=== PATIENT | female | born 2000 | race Caucasian/White ===

== ENCOUNTER 2021-10-25 15:12 | Outpatient (CLI) | payer OTHER ==
[2021-10-25 19:26] LABS: BILIRUBIN,URINE NEGATIVE (NEGATIVE); GLUCOSE, URINE (UA) NEGATIVE (NEGATIVE); KETONES,URINE (UA) NEGATIVE (NEGATIVE); LEUKOCYTE ESTERASE, URINE NEGATIVE (NEGATIVE); NITRITE,URINE POSITIVE (NEGATIVE); OCCULT BLOOD,URINE NEGATIVE (NEGATIVE); PROTEIN,URINE 30 mg/dL (NEGATIVE); UROBILINOGEN,URINE 0.2 (NORMAL) E.U./dL (NORMAL)
[2021-10-25 19:35] LABS: CLARITY,URINE CLEAR (CLEAR)
[2021-10-25 19:36] LABS: BACTERIA,URINE Few /HPF (None Seen); HCG UR QUAL NEGATIVE; MUCUS,URINE Few Strands; RBC,URINE None Seen /HPF (0-5); SQUAMOUS EPITHELIAL CELL,UR FEW Squamous (<= Few); WBC,URINE 0-3 /HPF (0-5)
== END 2021-10-25 23:59 | disposition home or self-care (01) ==
LOC: LAB.N 15:12
PROVIDERS: ATTEND Nurse Practitioner
DX: R39.9 Unspecified symptoms and signs involving the genitourinary system (principal); R30.0 Dysuria
CPT/HCPCS: 81001; 81025; 87086

== ENCOUNTER 2021-11-02 08:00 | Outpatient (CLI) | payer OTHER | END 2021-11-02 23:59 | disposition home or self-care (01) | LOC: LAB.N 08:00 | PROVIDERS: ATTEND Family Medicine | DX: R30.0 Dysuria (principal) | CPT/HCPCS: 87086 ==

== ENCOUNTER 2022-06-29 16:46 | Outpatient (CLI) | payer OTHER | END 2022-06-29 16:47 | disposition home or self-care (01) | LOC: LAB.N 16:46 | PROVIDERS: ATTEND Nurse Practitioner Obstetrics & Gynecology | DX: R30.0 Dysuria (principal) | CPT/HCPCS: 87086 ==

== ENCOUNTER 2022-07-02 16:16 | Outpatient (CLI) | payer OTHER | END 2022-07-02 16:17 | disposition home or self-care (01) | LOC: LAB.N 16:16 | PROVIDERS: ATTEND Nurse Practitioner Obstetrics & Gynecology | DX: R30.0 Dysuria (principal) | CPT/HCPCS: 87086 ==

== ENCOUNTER 2022-08-11 06:42 | Outpatient (CLI) | payer OTHER ==
--- NOTE | 2022-08-11 11:19 | Ultrasound Report ---
PROCEDURE: OB Detailed Eval INDICATIONS: SUPERVISION OF OUTSIDE/PRIOR DATING DATA: Last menstrual period (LMP): 03/20/2022. LMP-based estimated date of delivery (PACO): 12/25/2022. First dating scan (date and location): 05/19/2022. Estimated date of delivery (PACO) from first dating scan: 12/30/2022. The below data below was generated using the ultrasound PACO of 12/30/2022 TECHNIQUE: Real-time scanning was performed of the fetus, with image documentation and biometric measurements. COMPARISON: None. FINDINGS: General: A single living intrauterine gestation is present. Presentation: Cephalic Placenta: Placental position is posterior, without previa. Amniotic fluid index: 13.7 cm, normal for gestational age. Largest pocket 4 cm. heart rate: 150 beats per minute. Maternal cervical canal: 4.3 cm long; normal length is 2.5 cm or more. biometrics: Biparietal diameter: 5.3 cm, 22 weeks 1 day. 99th percentile Head circumference: 19.1 cm, 21 weeks 2 days. 94th percentile Abdominal circumference: 15.8 cm, 20 weeks 6 days. 78 percentile Femur length: 3.4 cm, 20 weeks 6 days. 76 percentile Estimated gestational age from initial scan: 19 weeks 6 days Composite gestational age from present scan: 21 weeks 2 days Estimated weight and percentile: 389 g, 95th percentile Measurement variability in biometric dating: +/- 10 days from 12-20 weeks gestation, +/- 2 weeks from 20-30 weeks gestation, +/- 3 weeks at 30 weeks gestation or later. Anatomic survey: Neuro: Ventricles are normal at less than 10 mm. Cisterna magna is normal at 3-11 mm. Cerebellum i s normal in size and morphology. Nuchal skin fold: Normal at less than 6 mm between 14 and 20 weeks gestational age. Face: Nose and lips, facial profile are normal. Spine: No evidence for spina bifida. Heart: 4-chambered heart is present, with normal ventricular outflow tracts. Diaphragm: Diaphragm is intact. Stomach: Left-sided stomach is present. Kidneys: No hydronephrosis. Normal is less than 5 mm in 2nd trimester, less than 7 mm in 3rd trimester. Cord: 3 vessel cord has orthotopic insertion. Bladder: Normal in size. Extremities: All 4 extremities are visualized. IMPRESSION: 1. [place]ett living intrauterine at 21 weeks 2 days based on today's ultrasound. This is co ncordant with the first trimester ultrasound. Fetus is in the 95th percentile for weight. BPD is at t he 99th percentile. Recommend clinical correlation and if indicated follow-up OB ultrasound to evalua te for macrosomia. 2. Normal placenta and amniotic fluid. 3. Normal and complete anatomic survey. Reviewed by: Clarence Romero MD on 08/11/2022 10:18 AM MEGHA Approved by: Clarence Romero MD on 08/11/2022 10:18 AM MEGHA Station ID: [id number]
== END 2022-08-11 06:43 | disposition home or self-care (01) ==
LOC: DI 06:42
PROVIDERS: ATTEND Nurse Practitioner Obstetrics & Gynecology
DX: Z34.02 Encounter for supervision of normal first pregnancy, second trimester (principal); Z36.89 Encounter for other specified antenatal screening

== ENCOUNTER 2022-09-06 14:33 | Outpatient (CLI) | payer OTHER | END 2022-09-06 14:34 | disposition home or self-care (01) | LOC: LAB.N 14:33 | PROVIDERS: ATTEND Nurse Practitioner Obstetrics & Gynecology | DX: R30.0 Dysuria (principal) | CPT/HCPCS: 87077; 87086; 87181 ==

== ENCOUNTER 2022-10-01 11:26 | Outpatient (CLI) | payer OTHER ==
[2022-10-01 12:45] LABS: HCT - HEMATOCRIT 36.3 % (37.0-47.0); HGB - HEMOGLOBIN 11.9 g/dL (12.0-16.0); MEAN CORPUSCULAR HEMOGLOBIN 29.9 pg (27.0-31.0); MEAN CORPUSCULAR HGB CONC 32.8 g/dL (32.0-36.0); MEAN CORPUSCULAR VOLUME 91.2 fL (81.0-99.0); MEAN PLATELET VOLUME 9.5 fL (7.9-10.8); RED BLOOD COUNT 3.98 10^6/uL (4.20-5.40); RED CELL DISTRIBUTION WIDTH 13.4 % (12.0-15.0); WHITE BLOOD COUNT 5.6 x10^3/uL (4.8-10.8)
== END 2022-10-01 11:27 | disposition home or self-care (01) ==
LOC: LAB 11:26
PROVIDERS: ATTEND Nurse Practitioner Obstetrics & Gynecology
DX: Z36.9 Encounter for antenatal screening, unspecified (principal)
CPT/HCPCS: 36415; 82950; 85027

== ENCOUNTER 2022-10-15 13:06 | Outpatient (CLI) | payer OTHER ==
[2022-10-15 18:03] LABS: CALCIUM 8.8 mg/dL (8.5-10.3); CREATININE 0.8 mg/dL (0.4-1.0); PHOSPHORUS 3.2 mg/dL (2.5-4.6); POTASSIUM 4.1 mmol/L (3.5-5.0)
[2022-10-15 18:07] LABS: BILIRUBIN,URINE NEGATIVE (NEGATIVE); GLUCOSE, URINE (UA) NEGATIVE (NEGATIVE); KETONES,URINE (UA) NEGATIVE (NEGATIVE); LEUKOCYTE ESTERASE, URINE NEGATIVE (NEGATIVE); NITRITE,URINE NEGATIVE (NEGATIVE); OCCULT BLOOD,URINE NEGATIVE (NEGATIVE); PROTEIN,URINE NEGATIVE (NEGATIVE); UROBILINOGEN,URINE 0.2 (NORMAL) E.U./dL (NORMAL)
[2022-10-15 18:10] LABS: CREATININE,URINE 111.4 mg/dL; MICROALBUM/CREATININE RATIO,UR 1.8 ug/mg (<30.0); MICROALBUMIN,URINE 0.2 mg/dL (0-300.0); PROTEIN/CREATININE RATIO,URINE 0.1 (<=0.2)
[2022-10-15 18:19] LABS: CLARITY,URINE CLEAR (CLEAR)
[2022-10-15 18:22] LABS: BACTERIA,URINE Rare /HPF (None Seen); RBC,URINE 0-5 /HPF (0-5); SQUAMOUS EPITHELIAL CELL,UR FEW Squamous (<= Few); WBC,URINE 0-3 /HPF (0-5)
== END 2022-10-15 13:07 | disposition home or self-care (01) ==
LOC: LAB.N 13:06
PROVIDERS: ATTEND Internal Medicine Nephrology
DX: R80.9 Proteinuria, unspecified (principal)
CPT/HCPCS: 36415; 80069; 81001; 82043; 82570; 84156; 87086

== ENCOUNTER 2022-11-19 13:20 | Outpatient (CLI) | payer OTHER ==
[2022-11-19 18:05] LABS: HCT - HEMATOCRIT 40.3 % (37.0-47.0); HGB - HEMOGLOBIN 13.2 g/dL (12.0-16.0); MEAN CORPUSCULAR HEMOGLOBIN 30.2 pg (27.0-31.0); MEAN CORPUSCULAR HGB CONC 32.8 g/dL (32.0-36.0); MEAN CORPUSCULAR VOLUME 92.2 fL (81.0-99.0); MEAN PLATELET VOLUME 10.2 fL (7.9-10.8); RED BLOOD COUNT 4.37 10^6/uL (4.20-5.40); RED CELL DISTRIBUTION WIDTH 13.5 % (12.0-15.0); WHITE BLOOD COUNT 6.4 x10^3/uL (4.8-10.8)
== END 2022-11-19 13:21 | disposition home or self-care (01) ==
LOC: LAB.N 13:20
PROVIDERS: ATTEND Nurse Practitioner Obstetrics & Gynecology
DX: R42 Dizziness and giddiness (principal)
CPT/HCPCS: 36415; 85027

== ENCOUNTER 2022-12-22 04:50 | Inpatient (IN) | payer OTHER ==
[2022-12-22 07:31] LABS: RUPTURE OF MEMBRANES PLUS POSITIVE (NEGATIVE)
[2022-12-22] MEDS ORDERED: METHYLERGONOVINE 0.2 MG/ML VIAL IM PRN (07:59)
[2022-12-22] MEDS ORDERED: LABETALOL 20 MG/4 ML SYRINGE IVP PRN ×3 (07:59)
[2022-12-22] MEDS ORDERED: hydrALAZINE INJ 20 MG/ML VIAL IVP PRN ×2 (07:59)
[2022-12-22] MEDS ORDERED: OXYTOCIN/SODIUM CHLORIDE 500 ML IV PRN (07:59)
[2022-12-22] MEDS ORDERED: CARBOPROST TROMETHAMINE 250 MCG/ML AMP IM PRN (07:59)
[2022-12-22] MEDS ORDERED: AMPICILLIN 2 GM in SODIUM CHLORIDE 0.9% MINIBAG 100 ML IV ONE (07:59)
[2022-12-22] MEDS ORDERED: lidocaine 1% 20 ML MDV ID PRN (07:59)
[2022-12-22] MEDS ORDERED: SODIUM CHLORIDE FLUSH 0.9% 10 ML SYRINGE IVP PRN (07:59)
[2022-12-22] MEDS ORDERED: miSOPROStoL 200 MCG TABLET BC PRN (07:59)
[2022-12-22] MEDS ORDERED: fentaNYL 100 MCG/2 ML VIAL IVP PRN (07:59)
[2022-12-22] MEDS ORDERED: NIFEdipine 10 MG CAPSULE PO PRN (07:59)
[2022-12-22] MEDS ORDERED: OXYTOCIN 10 UNIT/ML VIAL IM PRN (07:59)
[2022-12-22] MEDS ORDERED: TRANEXAMIC ACID IN NACL 1,000 MG/100 ML BAG IV PRN (07:59)
[2022-12-22] MEDS ORDERED: TERBUTALINE 1 MG/ML VIAL SUBQ PRN (07:59)
[2022-12-22] MEDS ORDERED: miSOPROStoL 200 MCG TABLET PR PRN (07:59)
[2022-12-22] MEDS ORDERED: SODIUM CHLORIDE FLUSH 0.9% 10 ML SYRINGE IVP SCH (08:00)
--- NOTE | 2022-12-22 08:17 | HISTORY & PHYSICAL EXAMINATION ---
Admit History - Visit Reason Visit Reason: Contractions, Membranes rupture - : 1 Parity: 0 Premature: 0 Ectopic: 0 : 0 Care: positive: [facility] Risk/History: positive: None Complications This : positive: None Smoking Status: Never smoker - Mother's Labs Mother's Blood Type: positive: A Mother's RH: positive: Positive GBS: positive: Group B Step Negative Rubella Status: positive: Non-immune Review of Systems - Constitutional Constitutional: denies: Fatigue, Fever, Chills, Malaise - Eyes Eyes: denies: Blurred vision, Spots in vision, Dipolpia - Cardiovascular Cariovascular: denies: Irregular heart rate, Palpitations, Chest pain, Edema - Respiratory Respiratory: denies: Cough, Wheezing, SOB at rest - Gastrointestinal Gastrointestinal: denies: Constipation, Diarrhea, Nausea, Vomiting - Genitourinary Genitourinary: denies: Dysuria - Integumentary Integumentary: denies: Rash, Pruritis - Neurological Neurological: denies: Headache - Psychiatric Psychiatric: denies: Depression, Anxiety Physical - Abdominal Exam Vital Signs: Temp Pulse Resp BP Pulse Ox O2 Flow Rate 36.6 C 98 16 128/89 H 12/22/22 07:18 12/22/22 07:18 12/22/22 07:18 12/22/22 07:18 Contraction Frequency (min/apart): 3-6 Contraction Intensity: positive: Moderate Uterine Resting Tone: positive: Soft - Monitoring Heart Rate Baseline: 130 Strip Review: positive: Category I - Presentation Presentation: positive: Vertex - Vaginal Exam Membranes: positive: Membranes ruptured Dilation (in cm): 4 Effacement (%): 100 Station: positive: -2 Cervical Position: positive: Posterior - Speculum Exam Speculum Exam Performed: positive: No Findings: positive: Gross leak, Other Plan for Labor - Plan For Labor I expect patient to be DC'd or transferred within 96 hours.: Yes Plan for Labor: HPI: Simin is a 22yo @ 39.4wks gestation by LMP c/w 8.4wk U/S who presents to [facility] with c/o vaginal leakage of clear fluid and intermittent contractions. She reports leakage of clear fluid this morning at 0430 when she go up to use the bathroom. She states there was a small amount of mucous present with light pink streaking but otherwise denies vaginal bleeding. She reports +FM. Cervix upon arrival 4/100/-2, posterior and vertex with grossly ruptured membranes. ROM+ was positive. She has been a patient of [facility] since her transfer of care from [facility] at 13wks gestation. Her has remained uncomplicated. She has received consistent care for the duration of her . She is noted to be GBS positive and will treated for prophylaxis per protocol. She is supported by her Michael and her midwife practitioner Carole. She will be admitted to [facility] for expectant management. 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 SAB x 0. Last pap 03/2021-WNL, No hx of abnormals. Medical Hx: BRCA1 + Surgical Hx: none Family Hx: HTN-PGM; Katty's -sister; Uterine cancer- mother Meds: PNV, Flonase PRN Allergies: None known Social: , lives with Michael. Works maritime officer as a nanny. No tobacco, ETOH or recreational drug use. Caffeine intake -none. course: A positive, antibody negative Rubella non-immune; varicella non-immune Initial U/S @ 8.4wks c/w LMP dating Genetic screening- declined FAS WNL. Posterior placenta, no previa. Size c/w dating (EFW95%tile). Growth and IRASEMA @ 32wks ordered secondary to EFW 95%tile with BP diameter 99%tile was WNL. EFW 86%tile. Glucola 128 COVID-19 vaccine- unvaccinated/declined Influenza vaccine - declined Tdap vaccine - declined GBS positive Physical exam: Normocephalic, atraumatic Heart RRR w/o M/G/R Lungs CTAB Abdomen gravid, soft, nontender FHR baseline 130s, moderate variability, + accels, no decels Contractions palpate moderate every 3-6 minutes with soft resting tone SVE 4/100/-2, posterior, soft. Vertex. Grossly ruptured membranes. ROM+ positive Bilateral LE's trace edema. Mood is good. Assessment: 22yo @ 39.4wks gestation by LMP c/w 8.4wk U/S Early labor FHR Category I GBS positive Plan: Admit for expectant management. Initial Ampicillin for GBS prophylaxis per protocol. Intermittent heart rate ausculation. Jacuzzi PRN. Nitroux oxide PRN. Epidural per maternal request. Encouraged ambulation and position changes. Anticipate .
[2022-12-22 10:14] LABS: BASOPHILS % (AUTO) 0.3 %; EOSINOPHILS % (AUTO) 0.3 %; HCT - HEMATOCRIT 44.1 % (37.0-47.0); HGB - HEMOGLOBIN 14.3 g/dL (12.0-16.0); LYMPHOCYTES # (AUTO) 1.4 10^3/uL (1.5-3.5); LYMPHOCYTES % (AUTO) 18.9 %; MEAN CORPUSCULAR HEMOGLOBIN 29.2 pg (27.0-31.0); MEAN CORPUSCULAR HGB CONC 32.4 g/dL (32.0-36.0); MEAN CORPUSCULAR VOLUME 90.2 fL (81.0-99.0); MONOCYTES # (AUTO) 0.6 10^3/uL (0.0-1.0); MONOCYTES % (AUTO) 7.8 %; NEUTROPHILS # (AUTO) 5.2 10^3/uL (1.5-6.6); NEUTROPHILS % (AUTO) 72.4 %; PLT - PLATELET COUNT 251 10^3/uL (130-450); RED BLOOD COUNT 4.89 10^6/uL (4.20-5.40); RED CELL DISTRIBUTION WIDTH 13.2 % (12.0-15.0); WHITE BLOOD COUNT 7.2 x10^3/uL (4.8-10.8)
[2022-12-22 10:25] LABS: ALBUMIN 3.3 g/dL (3.2-5.5); ALBUMIN/GLOBULIN RATIO 0.9 (1.0-2.2); BILIRUBIN,TOTAL 0.3 mg/dL (0.2-1.0); CALCIUM 9.1 mg/dL (8.5-10.3); CREATININE 0.7 mg/dL (0.4-1.0); POTASSIUM 3.8 mmol/L (3.5-5.0); TOTAL PROTEIN 7.1 g/dL (6.7-8.2)
[2022-12-22] MEDS ORDERED: AMPICILLIN 1 GM in SODIUM CHLORIDE 0.9% MINIBAG 100 ML IV SCH (12:00)
--- NOTE | 2022-12-22 13:29 | PROVIDER PROGRESS NOTE ---
Labor Progress Note - Uterine Monitoring Uterine Monitoring Mode: positive: External toco Contraction Frequency (min/apart): 2-4 Contraction Intensity: positive: Strong Uterine Resting Tone: positive: Soft - Monitoring Monitor Mode: positive: External ultrasound Heart Rate Baseline: 140 Heart Rate Variability: positive: Moderate (6-25 bmp) Accelerations: positive: Present, 15x15 Decelerations: positive: None Strip Review: positive: Category I - Vaginal Exam Dilation (in cm): 8 Effacement (%): 100 Station: -1 - Labor Progress Note Labor Progress Note/Additional Text: S: Breathing through contractions well controlled. Feeling increased pressure with every contraction. Experiencing intermittent vomiting. Her and carburetor mechanic are supportive at the bedside. O: FHR baseline 160 after being in the tub. Afebrile. Contractions palpate strong every 2-4 minutes with soft resting tone SVE 8/100/-1, midposition. Vertex. A: 22yo @ 39.4wks gestation by LMP Active labor GBS positive FHR Category I P: Continue expectant management. Anticipate .
--- OUTSIDE RECORDS SUMMARY | 2022-12-22 14:06 | EXTERNAL MEDICAL SUMMARY RPT | Continuity of Care Document ---
:2000 Author Organization [facility] Address [address] [place] [address] Phone Care Team Providers Name Role Phone Unavailable Unavailable Unavailable Te, Provider Unavailable Unavailable Allergies No information. Encounters No information. Functional Status No information. Immunizations No information. Medications date description facility 2022-10-01 00:00 terconazole All 2022-10-05 00:00 terconazole All 2022-11-19 00:00 terconazole All 2022-10-01 00:00 terconazole All 2022-10-05 00:00 terconazole All 2022-11-19 00:00 terconazole All 2022-10-01 00:00 terconazole All 2022-10-05 00:00 terconazole All 2022-11-19 00:00 terconazole All 2022-10-01 00:00 terconazole All 2022-10-05 00:00 terconazole All 2022-11-19 00:00 terconazole All Problems No information. Procedures No information. Results/Labs test date author facility value unit interpret ation Result panel 1 (unknown) (no date) (unknown) All (no value) (units unknown ) (unknown) Result panel 2 (unknown) (no date) (unknown) All (no value) (units unknown ) (unknown) Result panel 3 (unknown) (no date) (unknown) All (no value) (units unknown ) (unknown) Result panel 4 (unknown) (no date) (unknown) All (no value) (units unknown ) (unknown) Result panel 5 (unknown) (no date) (unknown) All (no value) (units unknown ) (unknown) Result panel 6 (unknown) (no date) (unknown) All (no value) (units unknown ) (unknown) Result panel 7 (unknown) (no date) (unknown) All (no value) (units unknown ) (unknown) Result panel 8 (unknown) (no date) (unknown) All (no value) (units unknown ) (unknown) Result panel 9 (unknown) (no date) (unknown) All (no value) (units unknown ) (unknown) Result panel 10 (unknown) (no date) (unknown) All (no value) (units unknown ) (unknown) Result panel 11 (unknown) (no date) (unknown) All (no value) (units unknown ) (unknown) Result panel 12 (unknown) (no date) (unknown) All (no value) (units unknown ) (unknown) Result panel 13 (unknown) (no date) (unknown) All (no value) (units unknown ) (unknown) Result panel 14 (unknown) (no date) (unknown) All (no value) (units unknown ) (unknown) Result panel 15 (unknown) (no date) (unknown) All (no value) (units unknown ) (unknown) Result panel 16 (unknown) (no date) (unknown) All (no value) (units unknown ) (unknown) Result panel 17 (unknown) (no date) (unknown) All (no value) (units unknown ) (unknown) Result panel 18 (unknown) (no date) (unknown) All (no value) (units unknown ) (unknown) Result panel 19 (unknown) (no date) (unknown) All (no value) (units unknown ) (unknown) Result panel 20 (unknown) (no date) (unknown) All (no value) (units unknown ) (unknown) Result panel 21 (unknown) (no date) (unknown) All (no value) (units unknown ) (unknown) Result panel 22 (unknown) (no date) (unknown) All (no value) (units unknown ) (unknown) Result panel 23 (unknown) (no date) (unknown) All (no value) (units unknown ) (unknown) Result panel 24 (unknown) (no date) (unknown) All (no value) (units unknown ) (unknown) Result panel 25 (unknown) (no date) (unknown) All (no value) (units unknown ) (unknown) Result panel 26 (unknown) (no date) (unknown) All (no value) (units unknown ) (unknown) Result panel 27 (unknown) (no date) (unknown) All (no value) (units unknown ) (unknown) Result panel 28 (unknown) (no date) (unknown) All (no value) (units unknown ) (unknown) Result panel 29 (unknown) (no date) (unknown) All (no value) (units unknown ) (unknown) Result panel 30 (unknown) (no date) (unknown) All (no value) (units unknown ) (unknown) Result panel 31 (unknown) (no date) (unknown) All (no value) (units unknown ) (unknown) Result panel 32 (unknown) (no date) (unknown) All (no value) (units unknown ) (unknown) Result panel 33 (unknown) (no date) (unknown) All (no value) (units unknown ) (unknown) Result panel 34 (unknown) (no date) (unknown) All (no value) (units unknown ) (unknown) Result panel 35 (unknown) (no date) (unknown) All (no value) (units unknown ) (unknown) Result panel 36 (unknown) (no date) (unknown) All (no value) (units unknown ) (unknown) Result panel 37 (unknown) (no date) (unknown) All (no value) (units unknown ) (unknown) Result panel 38 (unknown) (no date) (unknown) All (no value) (units unknown ) (unknown) Result panel 39 (unknown) (no date) (unknown) All (no value) (units unknown ) (unknown) Result panel 40 (unknown) (no date) (unknown) All (no value) (units unknown ) (unknown) Result panel 41 (unknown) (no date) (unknown) All (no value) (units unknown ) (unknown) Result panel 42 (unknown) (no date) (unknown) All (no value) (units unknown ) (unknown) Result panel 43 (unknown) (no date) (unknown) All (no value) (units unknown ) (unknown) Social History No information. Vital Signs No information.
[2022-12-22] MEDS ORDERED: HYDROCORTISONE 1% CREAM 28 GM TUBE PR PRN (17:15)
--- NOTE | 2022-12-22 17:24 | DELIVERY NOTE ---
Delivery Note - Labor Labor: positive: Spontaneous - Delivery Method Delivery Method: positive: Spontaneous vaginal delivery - Presentation Presentation: positive: Vertex, GUMARO - right occiput anterior - Nuchal Cord Nuchal Cord: positive: None - Amniotic Fluid Description Amniotic Fluid Description: positive: Clear - Episiotomy Type Episiotomy Type: positive: None - Laceration Laceration: positive: 1st degree, Perineal - Delivery Outcome Delivery Outcome: positive: Livebirth - : positive: Placed in direct skin contact with mother, Stimulated, Warmed, [place] used sex: positive: Male - Cord Cord: positive: 3 vessels - Placenta Placenta: positive: Intact - Estimated Blood Loss Estimated Blood Loss (in cc): 250 - Post Delivery Events Post Delivery Events: positive: No post delivery events - Delivery Comments (Free Text/Narrative) Delivery Comments (Free Text/Narrative): Labor: This 22yo @ 39.4wks gestation by LMP c/w 8wk U/S presents to [facility] with c/o grossly ruptured membranes and contractions. Reports SROM at 0427 on 12/22/2022 which was noted to be a moderate amount of clear fluid. Cervix was 4/100/-2, posterior and vertex with grossly ruptured membranes. FHR demonstrated Category I pattern throughout labor. Normal labor course. Pt progressed spontaneously to c/c/+2 @ 1546 with onset of active pushing at 1550. : Normal SVB of viable male on 12/22/2022 @ 1647. No nuchal cord. The was placed on maternal abdomen, stimulated, dried, and placed skin to skin. Apgars were 8/9 at 1 and 5 minutes respectively. Pitocin administered via IV for hemostasis. The umbilical cord was allowed to stop pulsating at which time it was doubly clamped by CNM and cut by FOB. 3VC. Cord blood was obtained. Fundal massage and gentle cord traction applied for active management of the third stage. Placenta delivered spontaneously and intact at 1653. EBL 250mL. Fourth stage: Uterine fundus firm and there is no excessive bleeding. The perineum, vagina, and cervix were inspected and noted to have a 1st degree perineal laceration which was hemostatic and left unrepaired. Tissues well approximated. initiated. Family bonding well. Both mother and baby were left in stable condition.
[2022-12-22] MEDS: ACETAMINOPHEN 500 MG TABLET PO SCH (17:48)
[2022-12-22] MEDS: WITCH HAZEL/GLYCERIN 1 PAD TOP PRN (17:49)
[2022-12-22] MEDS: IBUPROFEN 800 MG TABLET PO SCH (17:49)
[2022-12-22] MEDS ORDERED: LACTATED RINGERS 1,000 ML IV SCH (18:00)
[2022-12-22] MEDS: DOCUSATE SODIUM 100 MG CAPSULE PO SCH (20:59)
[2022-12-23] MEDS: IBUPROFEN 800 MG TABLET PO SCH ×4 (00:13→18:23)
[2022-12-23] MEDS: ACETAMINOPHEN 500 MG TABLET PO SCH ×3 (02:08→18:22)
[2022-12-23] MEDS: DOCUSATE SODIUM 100 MG CAPSULE PO SCH ×3 (09:52→21:04)
[2022-12-23] MEDS: WITCH HAZEL/GLYCERIN 1 PAD TOP PRN (21:04)
[2022-12-24] MEDS: IBUPROFEN 800 MG TABLET PO SCH ×2 (02:15→08:06)
[2022-12-24] MEDS: ACETAMINOPHEN 500 MG TABLET PO SCH ×2 (02:15→10:14)
[2022-12-24] MEDS: DOCUSATE SODIUM 100 MG CAPSULE PO SCH (08:06)
[2022-12-24 08:12] VITALS: BP 135/83
--- NOTE | 2022-12-24 08:26 | Discharge Plan ---
Discharge Plan Problem Reviewed?: Yes Disposition: Home, Self Care Condition: Good Diet: Regular Activity Restrictions: No Restrictions Shower Restrictions: No Driving Restrictions: No Weight Bearing: Full Weight Instruction Topics: Vaginal After No Smoking: If you smoke, Please STOP! Call for help. Follow-up with: Taryn Garcia CNM, ARNP [Provider Admit Priv/Credential] - 1 Week (December 28 @ 11:45am, phone visit)
--- NOTE | 2022-12-24 12:44 | Labor Flowsheet ---
Labor Flowsheet Datetime Report Generated by CPN: 12/24/2022 12:43 Datetime: 12/24/2022 07:53 VITAL SIGNS NBP Sys/Ronna/Mean (mmHg): 135 : 83 : 94 Pulse: 84 Datetime: 12/22/2022 21:14 UTERINE ACTIVITY Monitor Mode: Palpation Frequency (min): 2-3 Quality: Strong Duration (sec): 60 Pattern: Normal: <= 5 Contractions in 10 Minutes Resting Tone (Palpate): Relaxed Datetime: 12/22/2022 20:50 Stage of : Datetime: 12/22/2022 16:54 SpO2 (%): 99 Datetime: 12/22/2022 16:53 MEDICATIONS Pitocin (milliunits): Started @ post bolus Datetime: 12/22/2022 16:45 ASSESSMENT A Monitor Mode: Telemetry FHR Baseline Rate : 140 Variability: Moderate 6-25 bpm Accelerations: 15X15 Decelerations: Variable Actions for Decelerations: Other Category: Category II Pushing Position: Pushing with Contractions; Pushing Left Side Pushing Progress: Molding Noted; Presenting Part Visible; Pushing Effectively with Contractions Datetime: 12/22/2022 16:34 LaborFlag: Labor Datetime: 12/22/2022 16:30 Comments: indeterminate baseline. spo2 sensor matches maternal HR by auscultation. RN and Provide r continuously at bedside. Datetime: 12/22/2022 16:15 Monitor Interventions for FHR: Ultrasound Adjusted COMMUNICATION Communication: RN at Bedside; Provider at Bedside Datetime: 12/22/2022 15:50 STAGE 2 Pushing: Coached on Pushing; Urge to Push; Involuntary Pushing Datetime: 12/22/2022 15:46 VAGINAL EXAM Dilatation (cm): 10.0 Effacement (%): 100 Station: 2 Exam by: JAMILAH Garcia [employer] RECRUITER Datetime: 12/22/2022 15:31 PATIENT CARE Patient Position/Activity: Left Extreme Patient Care Comments: pillow between knees Provider Notified (Name): Tarynruy Garcia CNM [employer] Communication Comments: Patient involuntarily pushing with contractions, perineal bulging noted wit h pushing Datetime: 12/22/2022 15:09 Temperature (C): 36.9 Datetime: 12/22/2022 14:51 Membranes Ruptured Date/Time: 12/22/2022 04:00 Membranes Rupture Method: Spontaneous Amniotic Fluid Color: Clear Amniotic Fluid Odor: None Datetime: 12/22/2022 14:38 Respirations: 15 Datetime: 12/22/2022 14:35 Antibiotics: Start Antibiotics; Ampicillin IV 1 Gm Datetime: 12/22/2022 14:13 Cervix, Position: Midposition Datetime: 12/22/2022 13:19 Temperature Route: Oral PAIN Pain Presence: Intermittent Pain Type: Contraction Pain Location: Abdomen Pain Relief Measures: Comfort Measures Pain Coping: Declines Medication or Epidural; Writhing Datetime: 12/22/2022 13:15 MATERNAL ASSESSMENT Nausea/Vomiting: Present Datetime: 12/22/2022 12:50 Notification Reason: Labor Status; Pain Datetime: 12/22/2022 12:17 Comfort Measures: Breathing/Relaxation; Coaching; Back Rub Given; Family Support; Aromatherapy; Esther la Support
--- NOTE | 2022-12-24 15:52 | DISCHARGE SUMMARY ---
Discharge Summary Condition at Discharge: Good Discharge Disposition: 01 Home, Self Care - HOSPITAL COURSE Hospital Course: Date of Admission: 12/22/2022 Date of Discharge: 12/22/2022 Diagnosis on Admission: 1. 22yo @ 39.4wks gestation by LMP c/w 8.4wk U/S 2. Early labor 3. FHR Category I 4. GBS positive Diagnosis on Discharge: 1. 22yo PPD#2 s/p TSVB viable male 2. 3. Normal recovery Brief History: She is a patient of [facility] who presented on 12/22/2022 with co vaginal leakage of fluid and contractions. She was found to contract every 3-6 minutes and cervix was 4/100/-2, posterior, soft and vertex with grossly rupt ured membranes. She was noted to be GBS positive and received adequate treatment for prophylaxis per protocol. She progressed spontaneously to deliver a viable male infant on 12/22/2022 @ 1647. Apgars were 8/9 at 1 and 5 minutes respectively. EBL 250mL. 1st degree perienal laceration was hemostatic and left unrepaired. She has been doing well in her course. She is ambulating and tolerat ing a regular diet. She is urinating without difficulty and her lochia is normal. Her pain is well controlled with oral medications. She will be discharged home today on day #2 with instructions to continue taking her vitamin while and to continue taking ibuprofen and tylenol as prescribed for pain management. She intends to follow up with myself at [facility] in 1 week for routine visit or sooner if needed. She has been given precautions to call if she has any worsening fevers, chills, abdominal pain, increased vaginal bleeding or foul smelling vaginal lochia. Physical Exam: Normocephalic, atraumatic. Heart RRR w/o M/G/R, lungs CTAB. Abdomen soft and nontender with fundus firm at U-1. Perineum intact, light lochia rubra. Bilater al LE's trace edema. Mood is good. - ALLERGIES Allergies/Adverse Reactions: Allergies Allergy/AdvReac Type Severity Reaction Status Date / Time cat dander Allergy Respiratory Verified 12/22/22 10:40 dog dander Allergy Respiratory Verified 12/22/22 10:40 - LABS Result Diagrams: 12/22/22 10:05 12/22/22 10:05
--- NOTE | 2022-12-24 15:55 | PROVIDER PROGRESS NOTE ---
Subjective - Subjective Subjective: S: Bonding well with baby. with little difficulty and has been asking appropriate questions and states the nurses have been helpful with getting him latched. Baby has been spitting up slightly which makes both her and Michael a little nervous. She reports her bleeding is decreased and is light. Her pain is well controlled with oral medications. Her Michael is supportive at the bedside. O: VS WNL. Heart RRR w/o M/G/R, lungs CTAB, abdomen soft and nontender with fu ndus firm at U, perineum intact, light lochia rubra, bilateral LE's trace edema. Mood is good. A: 22yo -->P1 PPD#1 s/p TSVB viable male 1st degree perineal laceration - intact Normal recovery p: Continue routine pp care and medications. Evaluate for discharge home tomorrow. Objective - Vital Signs/Intake & Output Vital Signs: Vital Signs x48h Temp Pulse Resp BP Pulse Ox 12/24/22 08:11 36.7 C 84 21 135/83 H 100 Intake & Output: Intake & Output 12/21/22 12/22/22 12/23/22 12/24/22 23:59 23:59 23:59 23:59 Intake Total 700 450 Output Total 600 Balance 100 450 - Lab Results Fish Bones: 12/22/22 10:05 12/22/22 10:05
--- NOTE | 2022-12-27 17:37 | PROCEDURE REPORT ---
- HPI Diagnosis/Indication for NST: Other Current EDU 12/25/22 Gestation 39 Weeks and 4 Days 1 Para 0 Vital Signs Temperature 36.6 C 12/22/22 07:18 Heart Rate 98 12/22/22 07:18 Respiratory Rate 16 12/22/22 07:18 Blood Pressure 128/89 H 12/22/22 07:18 Temperature 36.7 C 12/24/22 08:11 Heart Rate 84 12/24/22 08:11 Respiratory Rate 21 12/24/22 08:11 Blood Pressure 135/83 H 12/24/22 08:11 O2 Saturation 100 12/24/22 08:11 If not protocol: Oxygen Flow, liters/minute - NST Procedure NST Procedure Start Date 12/22/22 Start Time 07:07 Stop Time 07:48 Vibroacoustic Stimulation Used No Patient States Movement Yes - Results and Plan Plan: NST reactive. FHR baseline 140s, moderate variability, + accels, no decels Contractions palpate mild/moderate every 3-6 minutes with soft resting tone.
== END 2022-12-24 12:20 | disposition home or self-care (01) | DRG 807 ==
LOC: WFO 04:50 → FBP 06:54 → WFO 12:06
PROVIDERS: ADMIT Nurse Practitioner Obstetrics & Gynecology; ATTEND Nurse Practitioner Obstetrics & Gynecology
PROC: 10E0XZZ Delivery of Products of Conception, External Approach (ICD-10-PCS; principal; 2022-12-22)
DX: O99.824 Streptococcus B carrier state complicating childbirth (principal); Z37.0 Single live birth; O70.0 First degree perineal laceration during delivery; Z3A.39 39 weeks gestation of pregnancy; Z28.310 Unvaccinated for COVID-19
CPT/HCPCS: 36415; 59025; 80053; 84112; 85025; 86850; 86900; 86901; 99215; A9270

== ENCOUNTER 2022-12-29 10:08 | Outpatient (CLI) | payer OTHER ==
[2022-12-29 10:24] LABS: BASOPHILS % (AUTO) 0.4 %; EOSINOPHILS # (AUTO) 0.1 10^3/uL (0.0-0.7); EOSINOPHILS % (AUTO) 2.5 %; HCT - HEMATOCRIT 42.5 % (37.0-47.0); HGB - HEMOGLOBIN 13.5 g/dL (12.0-16.0); LYMPHOCYTES # (AUTO) 1.4 10^3/uL (1.5-3.5); LYMPHOCYTES % (AUTO) 26.1 %; MEAN CORPUSCULAR HEMOGLOBIN 29.2 pg (27.0-31.0); MEAN CORPUSCULAR HGB CONC 31.8 g/dL (32.0-36.0); MEAN CORPUSCULAR VOLUME 91.8 fL (81.0-99.0); MEAN PLATELET VOLUME 9.1 fL (7.9-10.8); MONOCYTES # (AUTO) 0.6 10^3/uL (0.0-1.0); MONOCYTES % (AUTO) 12.3 %; NEUTROPHILS # (AUTO) 3.1 10^3/uL (1.5-6.6); NEUTROPHILS % (AUTO) 58.5 %; PLT - PLATELET COUNT 305 10^3/uL (130-450); RED BLOOD COUNT 4.63 10^6/uL (4.20-5.40); RED CELL DISTRIBUTION WIDTH 13.2 % (12.0-15.0); WHITE BLOOD COUNT 5.2 x10^3/uL (4.8-10.8)
[2022-12-29 10:39] LABS: ALBUMIN 3.4 g/dL (3.2-5.5); ALBUMIN/GLOBULIN RATIO 0.9 (1.0-2.2); BILIRUBIN,TOTAL 0.6 mg/dL (0.2-1.0); CALCIUM 9.1 mg/dL (8.5-10.3); CREATININE 0.7 mg/dL (0.4-1.0); POTASSIUM 3.5 mmol/L (3.5-5.0); TOTAL PROTEIN 7.4 g/dL (6.7-8.2)
== END 2022-12-29 10:09 | disposition home or self-care (01) ==
LOC: LAB 10:08
PROVIDERS: ATTEND Nurse Practitioner Obstetrics & Gynecology
DX: R03.0 Elevated blood-pressure reading, without diagnosis of hypertension (principal)
CPT/HCPCS: 36415; 80053; 85025

== ENCOUNTER 2023-02-10 13:19 | Outpatient (CLI) | payer OTHER ==
[2023-02-10 18:03] LABS: ALBUMIN 4.3 g/dL (3.2-5.5); ALBUMIN/GLOBULIN RATIO 1.4 (1.0-2.2); BILIRUBIN,TOTAL 0.5 mg/dL (0.2-1.0); CALCIUM 8.9 mg/dL (8.5-10.3); CREATININE 0.7 mg/dL (0.4-1.0); POTASSIUM 3.2 mmol/L (3.5-5.0); TOTAL PROTEIN 7.4 g/dL (6.7-8.2)
[2023-02-10 18:05] LABS: BASOPHILS % (AUTO) 0.7 %; EOSINOPHILS # (AUTO) 0.1 10^3/uL (0.0-0.7); EOSINOPHILS % (AUTO) 2.4 %; HCT - HEMATOCRIT 38.7 % (37.0-47.0); HGB - HEMOGLOBIN 12.2 g/dL (12.0-16.0); LYMPHOCYTES # (AUTO) 1.9 10^3/uL (1.5-3.5); LYMPHOCYTES % (AUTO) 34.7 %; MEAN CORPUSCULAR HGB CONC 31.5 g/dL (32.0-36.0); MEAN CORPUSCULAR VOLUME 91.9 fL (81.0-99.0); MEAN PLATELET VOLUME 10.5 fL (7.9-10.8); MONOCYTES # (AUTO) 0.5 10^3/uL (0.0-1.0); MONOCYTES % (AUTO) 9.9 %; NEUTROPHILS # (AUTO) 2.8 10^3/uL (1.5-6.6); NEUTROPHILS % (AUTO) 52.1 %; PLT - PLATELET COUNT 260 10^3/uL (130-450); RED BLOOD COUNT 4.21 10^6/uL (4.20-5.40); RED CELL DISTRIBUTION WIDTH 13.2 % (12.0-15.0); WHITE BLOOD COUNT 5.4 x10^3/uL (4.8-10.8)
[2023-02-10 18:07] LABS: THYROID STIMULATING HORMONE 1.02 uIU/mL (0.34-5.60)
[2023-02-10 18:13] LABS: FERRITIN 24.7 ng/mL (11.0-306.8)
== END 2023-02-10 13:20 | disposition home or self-care (01) ==
LOC: LAB.N 13:19
PROVIDERS: ATTEND Nurse Practitioner Family
DX: Z39.2 Encounter for routine postpartum follow-up (principal); H43.399 Other vitreous opacities, unspecified eye; R74.8 Abnormal levels of other serum enzymes; R51.9 Headache, unspecified
CPT/HCPCS: 36415; 80050; 82607; 82728; 82746; 83540; 84466

== ENCOUNTER 2023-05-16 11:11 | Outpatient (CLI) | payer OTHER ==
[2023-05-16 18:04] LABS: BASOPHILS % (AUTO) 0.6 %; EOSINOPHILS # (AUTO) 0.1 10^3/uL (0.0-0.7); EOSINOPHILS % (AUTO) 1.3 %; HCT - HEMATOCRIT 40.1 % (37.0-47.0); HGB - HEMOGLOBIN 12.8 g/dL (12.0-16.0); LYMPHOCYTES # (AUTO) 1.8 10^3/uL (1.5-3.5); LYMPHOCYTES % (AUTO) 32.5 %; MEAN CORPUSCULAR HGB CONC 31.9 g/dL (32.0-36.0); MEAN CORPUSCULAR VOLUME 87.7 fL (81.0-99.0); MEAN PLATELET VOLUME 11.2 fL (7.9-10.8); MONOCYTES # (AUTO) 0.6 10^3/uL (0.0-1.0); MONOCYTES % (AUTO) 10.9 %; NEUTROPHILS % (AUTO) 54.3 %; PLT - PLATELET COUNT 269 10^3/uL (130-450); RED BLOOD COUNT 4.57 10^6/uL (4.20-5.40); RED CELL DISTRIBUTION WIDTH 13.3 % (12.0-15.0); WHITE BLOOD COUNT 5.4 x10^3/uL (4.8-10.8)
[2023-05-16 18:29] LABS: ALBUMIN 4.5 g/dL (3.2-5.5); ALBUMIN/GLOBULIN RATIO 1.6 (1.0-2.2); BILIRUBIN,TOTAL 0.5 mg/dL (0.2-1.0); CALCIUM 9.3 mg/dL (8.5-10.3); CREATININE 0.5 mg/dL (0.6-1.3); POTASSIUM 3.9 mmol/L (3.5-4.5); TOTAL PROTEIN 7.3 g/dL (6.4-8.9)
[2023-05-16 18:31] LABS: BILIRUBIN,URINE NEGATIVE (NEGATIVE); GLUCOSE, URINE (UA) NEGATIVE (NEGATIVE); KETONES,URINE (UA) NEGATIVE (NEGATIVE); LEUKOCYTE ESTERASE, URINE NEGATIVE (NEGATIVE); NITRITE,URINE NEGATIVE (NEGATIVE); OCCULT BLOOD,URINE NEGATIVE (NEGATIVE); PH,URINE 5.5 PH (5.0-7.5); PROTEIN,URINE NEGATIVE (NEGATIVE); UROBILINOGEN,URINE 0.2 (NORMAL) E.U./dL (NORMAL)
[2023-05-16 19:05] LABS: AMORPHOUS SEDIMENT,UR Marked /LPF; BACTERIA,URINE None Seen /HPF (None Seen); CLARITY,URINE CLOUDY (CLEAR); RBC,URINE None Seen /HPF (0-5); SQUAMOUS EPITHELIAL CELL,UR RARE Squamous (<= Few); WBC,URINE 0-3 /HPF (0-5)
== END 2023-05-16 11:12 | disposition home or self-care (01) ==
LOC: LAB.N 11:11
PROVIDERS: ATTEND Nurse Practitioner
DX: R10.2 Pelvic and perineal pain (principal); R10.9 Unspecified abdominal pain
CPT/HCPCS: 36415; 80053; 81001; 85025; 87086

== ENCOUNTER 2023-05-30 08:19 | Outpatient (CLI) | payer OTHER ==
--- NOTE | 2023-05-30 10:11 | Ultrasound Report ---
PROCEDURE: Abdomen Complete INDICATIONS: ABD PAIN TECHNIQUE: Real-time scanning was performed of the abdominal and retroperitoneal organs, with image documentatio n. COMPARISON: None. FINDINGS: Liver: Liver is normal in size and homogeneous in echotexture. There is slightly increased [place] of the hepatic parenchyma. No focal lesions identified. Gallbladder: Unremarkable. Biliary ducts: Intrahepatic bile ducts are non-dilated. Extrahepatic bile duct caliber measures 3.4 mm. Normal is 6-7 mm or less in diameter, or 10 mm or less post-cholecystectomy. Pancreas: Visualized portions of the pancreas are sonographically normal. Spleen: Spleen is normal in size and homogeneous in echotexture. Kidneys: Kidneys are normal in size and echotexture. Right kidney measures 9.9 cm long; left kidney measures 10.9 cm long. No hydronephrosis or nephrolithiasis. No solid masses. No complex renal cys tic lesions which require follow-up. Aorta: Visualized aorta is normal in caliber at less than 3 cm. Iliacs: Proximal common iliac arteries are normal in caliber at less than 2.5 cm. IVC: Intrahepatic inferior vena cava is patent. Miscellaneous: No free abdominal fluid. IMPRESSION: 1. Slightly increased hepatic echogenicity, which may reflect mild hepatic steatosis. 2. No cholelithiasis or nephrolithiasis. Reviewed by: Charline Tavares MD on 05/30/2023 10:10 AM PDT Approved by: Charline Tavares MD on 05/30/2023 10:10 AM PDT Station ID: [id number]
--- NOTE | 2023-05-30 21:33 | Ultrasound Report ---
PROCEDURE: Pelvic w/Transvaginal INDICATIONS: PELVIC PAIN TECHNIQUE: Real-time scanning was performed of the pelvic organs, with image documentation. Additional endovagi nal scanning was necessary due to incomplete visualization of the adnexal and endometrial structures by transabdominal scanning. COMPARISON: None. FINDINGS: Uterus: Uterus is anteverted and normal in size at 6.7 x 3.3 x 4.3 cm. The myometrium is homogeneou s. The endometrium measures 6.0 mm in combined thickness. Ovaries: The right ovary measures 4.1 x 2.5 x 3.0 cm, with a calculated ovarian volume of 16.1 cc. The left ovary measures 3.4 x 2.0 x 1.6 cm, with a calculated ovarian volume of 5.7 cc. The ovaries have a normal sonographic appearance. Less than 12 follicles can be seen in each ovary. No adnexal masses are seen. No cystic lesions measuring greater than 3 cm. Other: No pathologic free abdominal or pelvic fluid. IMPRESSION: Unremarkable exam. Reviewed by: Estee Scott MD on 05/30/2023 9:31 PM PDT Approved by: Estee Scott MD on 05/30/2023 9:31 PM PDT Station ID: [id number]
== END 2023-05-30 08:20 | disposition home or self-care (01) ==
LOC: DI 08:19
PROVIDERS: ATTEND Nurse Practitioner
DX: R10.9 Unspecified abdominal pain (principal); R10.2 Pelvic and perineal pain

== ENCOUNTER 2023-06-17 12:00 | Outpatient (CLI) | payer OTHER ==
--- NOTE | 2023-06-17 18:20 | XRAY Report ---
PROCEDURE: Knee 4 View BILAT INDICATIONS: KNEE JOINT PAIN TECHNIQUE: 4 views of the right and left knee(s) were acquired. COMPARISON: None. FINDINGS: Bones: No fractures or dislocations. No suspicious bony lesions. Possible/equivocal joint space n arrowing medial and patellofemoral compartments of both knees. No significant spurring. Soft tissues: No knee joint effusion. No suspicious soft tissue calcifications . IMPRESSION: No acute bony abnormality. If there remains a high clinical concern for fracture, consider cross-sect ional imaging now. If pain persists, consider repeat x-ray in 10-14 days or cross-sectional imaging. Reviewed by: Steffen Dunbar MD on 06/17/2023 6:18 PM PDT Approved by: Steffen Dunbar MD on 06/17/2023 6:18 PM PDT Station ID: [id number]
== END 2023-06-17 12:01 | disposition home or self-care (01) ==
LOC: DI 12:00
PROVIDERS: ATTEND Nurse Practitioner Family
DX: M25.569 Pain in unspecified knee (principal)

== ENCOUNTER 2024-03-31 13:03 | Emergency (ER) | payer OTHER ==
[2024-03-31 13:37] VITALS: BP 123/72; O2SAT 99
--- NOTE | 2024-03-31 13:56 | ED Physician Documentation ---
History of Present Illness - Stated complaint Stated Complaint: L BREAST PX - Chief complaint Chief Complaint: General - History obtained from History obtained from: Patient - History of Present Illness Timing: Yesterday Pain level max: 4 Pain level now: 4 - Additonal information Additional information: Patient complains of left breast pain with left breast redness starting yesterday. Fever 101 at home. Concerned about mastitis. She is breast- feeding. No cough, congestion, abdominal pain, nausea, vomiting, urinary symptoms. Nothing makes it better, worse with palpation. Review of Systems Constitutional: reports: Fever, Chills GI: denies: Vomiting : denies: Dysuria, Frequency, Hesitancy Skin: denies: Rash Neurologic: denies: Headache PD PAST MEDICAL HISTORY - Past Medical History Past Medical History: No - Past Surgical History Past Surgical History: No - Present Medications Home Medications: Ambulatory Orders Medication Instructions Recorded Confirmed cephALEXin [Keflex] 500 mg PO Q6H #40 cap 03/31/24 - Allergies Allergies/Adverse Reactions: Allergies Allergy/AdvReac Type Severity Reaction Status Date / Time cat dander Allergy Respiratory Verified 03/31/24 13:29 dog dander Allergy Respiratory Verified 03/31/24 13:29 - Social History Does the pt smoke?: Yes Smoking Status: Current every day smoker Does the pt drink ETOH?: No Does the pt have substance abuse?: No - Immunizations Immunizations are current?: No PD ED PE NORMAL - Vitals Vital signs reviewed: Yes - General General: Alert and oriented X 3, No acute distress - HEENT HEENT: Moist mucous membranes - Neck Neck: Supple, no meningeal sign - Respiratory Respiratory: No respiratory distress - Derm Derm: Warm and dry - Neuro Neuro: Alert and oriented X 3 - Free text exam Free text exam: Mild erythema to the medial aspect of the left breast, approximately the 10 o'clock position, approximately 2 x 3 cm. No palpable abscess. No nipple discharge. Otherwise normal examination of the left breast. The right breast appears normal. Results - Vitals Vitals: Vital Signs - 24 hr 03/31/24 13:29 Temperature 37.0 C Heart Rate 93 Respiratory 16 Rate Blood Pressure 123/72 O2 Saturation 99 Oxygen O2 Source Room air PD Medical Decision Making - ED course Complexity details: considered differential, d/w patient ED course: 23-year-old female with left breast mastitis. Will place on cephalexin for jerome e. Encouraged her to continue to breast-feed throughout the mastitis. Patient is well-appearing, nontoxic. Afebrile. Patient counseled regarding signs and symptoms for which I believe and urgent re-evaluation would be necessary. Patient with good understanding of and agreement to plan and is comfortable going home at this time This document was made in part using voice recognition software. While efforts are made to proofread this document, sound alike and grammatical errors may occur. Departure - Departure Disposition: 01 Home, Self Care Clinical Impression: Mastitis Condition: Good Instructions: ED Breast Infec Follow-Up: your,doctor as needed [Other] Prescriptions: cephALEXin [Keflex] 500 mg PO Q6H #40 cap Comments: Your prescription was sent to [facility] in [place]. We are placing you on cephalexin for 10 days. Please take all antibiotics until gone. Please return if you worsen. You can use Motrin or Tylenol as needed for pain. You can continue to breast-feed with a mastitis or continue to pump. Sometimes warm compresses may help as well. Forms: PCP List
== END 2024-03-31 14:15 | disposition home or self-care (01) ==
LOC: ED 13:03
DX: N61.0 Mastitis without abscess (principal); F17.200 Nicotine dependence, unspecified, uncomplicated
CPT/HCPCS: 99282; 99283